=== PATIENT | male | born 1950 | race Two or more races ===

== ENCOUNTER 2021-03-31 07:21 | Emergency (ER) | payer MEDICARE, OTHER ==
[~2021-03-31] VITALS: Ht 180.3 cm; Wt 86.2 kg
[2021-03-31] MEDS ORDERED: LIDOCAINE 1%-EPI 1:100,000 20 ML VIAL ONE (07:36)
--- NOTE | 2021-03-31 07:48 | NUR ---
DR CLAYTON AT BEDSIDE
--- NOTE | 2021-03-31 07:50 | NUR ---
ADMINISTRATIVE SUPPORT ASSISTANT AT BEDSIDE FOR BANDAGE.
[2021-03-31] MEDS ORDERED: CEPH500T PO (07:58)
[2021-03-31] MEDS ORDERED: LIDOCAINE HCL/PF 1% 30 ML VIAL TP ONE (08:00)
[2021-03-31 08:10] VITALS: BP 122/70
--- NOTE | 2021-03-31 08:10 | NUR ---
Patient discharged to home in stable condition. Written and verbal after care instructions given. Patient verbalizes understanding of instruction.
== END 2021-03-31 08:10 | disposition home or self-care (01) ==
LOC: ER 07:31
DX: L03.011 Cellulitis of right finger (principal)
CPT/HCPCS: 10060; 99283; J3490